=== PATIENT | female | born 1955 | race Caucasian/White ===

== ENCOUNTER 2021-12-09 19:59 | Emergency (ER) | payer BC, MEDICAID ==
[~2021-12-09] VITALS: Ht 154.9 cm; Wt 62.0 kg
[2021-12-09 20:14] VITALS: BP 142/67
== END 2021-12-10 02:00 | disposition left against medical advice (07) ==
LOC: ER 19:59
DX: Z53.21 Procedure and treatment not carried out due to patient leaving prior to being seen by health care provider (principal)